=== PATIENT | male | born 1955 | race African-American/Black ===

== ENCOUNTER 2019-07-01 05:45 | Day surgery (SDC) | payer OTHER ==
[2019-07-01] MEDS ORDERED: PROPOFOL 200 MG INJ (07:36)
[2019-07-01] MEDS ORDERED: LIDOCAINE 100 MG SYRINGE (07:36)
[2019-07-01] MEDS ORDERED: GLYCOPYRROLATE 0.4 MG INJ (07:36)
[2019-07-01] MEDS ORDERED: PROPOFOL 60 ML (07:36)
== END 2019-07-01 10:43 | disposition home or self-care (01) ==
LOC: GIL 05:45
DX: Z12.11 Encounter for screening for malignant neoplasm of colon (principal); D12.6 Benign neoplasm of colon, unspecified; K64.4 Residual hemorrhoidal skin tags; K64.8 Other hemorrhoids; E11.9 Type 2 diabetes mellitus without complications; I10 Essential (primary) hypertension; Z79.82 Long term (current) use of aspirin; Z79.84 Long term (current) use of oral hypoglycemic drugs
CPT/HCPCS: 45380; 82962; 88305